=== PATIENT | female | born 1975 | race Caucasian/White ===

== ENCOUNTER → 2016-06-13 | Outpatient (CLI) | payer BC | LOC: FIMAGING 09:48 | DX: Z12.31 Encounter for screening mammogram for malignant neoplasm of breast (principal) | CPT/HCPCS: G0202 ==

== ENCOUNTER → 2017-06-02 | Outpatient (CLI) | payer BC | LOC: FIMAGING 09:55 | PROVIDERS: ATTEND Family Medicine | DX: D72.819 Decreased white blood cell count, unspecified (principal); R53.83 Other fatigue; R60.9 Edema, unspecified ==

== ENCOUNTER → 2017-06-16 | Outpatient (CLI) | payer BC | LOC: FIMAGING 10:01 | PROVIDERS: ATTEND Obstetrics & Gynecology | DX: Z12.31 Encounter for screening mammogram for malignant neoplasm of breast (principal) ==

== ENCOUNTER → 2018-06-17 | Outpatient (CLI) | payer BC | LOC: FIMAGING 09:48 | PROVIDERS: ATTEND Family Medicine | DX: Z12.31 Encounter for screening mammogram for malignant neoplasm of breast (principal) ==